=== PATIENT | male | born 1970 | race Caucasian/White ===

== ENCOUNTER 2018-04-07 08:31 | Emergency (ER) | payer MEDICAID ==
[~2018-04-07] VITALS: Ht 172.7 cm; Wt 109.1 kg
[2018-04-07 08:35] VITALS: Ht 172.7 cm; Wt 109.1 kg
[2018-04-07] MEDS ORDERED: KOMBIGLYZE XR1 EACH PO (08:38)
[2018-04-07] MEDS ORDERED: ASPIRIN81 MG PO (08:38)
[2018-04-07] MEDS ORDERED: NITROQUICK0.4 MG SL (08:38)
[2018-04-07] MEDS ORDERED: COREG25 MG PO (08:39)
[2018-04-07 09:02] LABS: BASOPHILS 0.4 % (0-2); EOSINOPHILS 5.9 % (0-7); HEMATOCRIT 38.8 % (42.0-54.0); HEMOGLOBIN 13.5 g/dL (13.5-17.5); LYMPHOCYTES 19.1 % (15-50); MCHC 34.8 g/dL (31.0-37.0); MCV 89.2 fL (80.0-100.0); MONOCYTES 8.1 % (2-11); NEUTROPHILS 65.5 % (40-80); PLATELET COUNT 50 10x3/uL (130-400); RBC 4.35 10x6/uL (4.20-6.10); RDW 12.9 % (11.5-14.5); WBC 11.8 10x3/uL (4.8-10.8)
[2018-04-07 09:22] LABS: ALBUMIN 3.4 g/dL (3.4-5.0); ALKALINE PHOSPHATASE 122 U/L (46-116); ALT (SGPT) 30 U/L (10-68); BILIRUBIN - TOTAL 0.41 mg/dL (0.2-1.3); CALC OSMOLALITY 284 mosm/kg (275-300); CALCIUM 8.6 mg/dL (8.5-10.1); CARBON DIOXIDE 27.1 mmol/L (21.0-32.0); CHLORIDE - SERUM 104 mmol/L (98-107); GLUCOSE 202 mg/dL (74-106); INR 0.93 (0.85-1.17); POTASSIUM - SERUM 4.2 mmol/L (3.5-5.1); PROTEIN - SERUM 7.6 g/dL (6.4-8.2); PROTIME 12.1 SECONDS (11.6-15.0); SODIUM 139 mmol/L (136-145); UREA NITROGEN 16 mg/dL (7-18); eGFR NON AFRICAN AMERICAN 84 mL/min (90-120)
[2018-04-07 09:24] LABS: D-DIMER-QUANTITATIVE 0.56 ug/mLFEU (0.20-0.54)
[2018-04-07 09:46] LABS: CKMB 5.3 U/L (0.0-3.6); CREATINE KINASE 243 UL (21-232); MAGNESIUM - SERUM 2.1 mg/dL (1.8-2.4); TROPONIN-I 0.032 ng/mL (0.000-0.060)
[2018-04-07] MEDS ORDERED: ULTRAM50 MG PO (10:27)
[2018-04-07] MEDS ORDERED: NORVASC10 MG PO (10:27)
[2018-04-07 10:44] VITALS: BP 147/92
== END 2018-04-07 10:45 | disposition home or self-care (01) ==
LOC: D.ER 08:31
PROVIDERS: Emergency Medicine
DX: R07.9 Chest pain, unspecified (principal); E11.9 Type 2 diabetes mellitus without complications; I10 Essential (primary) hypertension

== ENCOUNTER 2018-05-05 20:40 | Emergency (ER) | payer MEDICAID ==
[~2018-05-05] VITALS: Ht 172.7 cm; Wt 127.3 kg
[~2018-05-05 20:40] MED LIST: ASPIRIN81 MG PO; COREG25 MG PO; KOMBIGLYZE XR1 EACH PO; NITROQUICK0.4 MG SL; NORVASC10 MG PO; ULTRAM50 MG PO
[2018-05-05 20:58] VITALS: Ht 172.7 cm; Wt 127.3 kg
[2018-05-05 21:57] LABS: APTT 45.1 SECONDS (22.8-39.4); INR 0.95 (0.85-1.17); PROTIME 12.2 SECONDS (11.6-15.0)
[2018-05-05 22:01] LABS: ALBUMIN 3.3 g/dL (3.4-5.0); ALKALINE PHOSPHATASE 114 U/L (46-116); ALT (SGPT) 32 U/L (10-68); BILIRUBIN - TOTAL 0.34 mg/dL (0.2-1.3); CALC OSMOLALITY 282 mosm/kg (275-300); CALCIUM 8.7 mg/dL (8.5-10.1); CHLORIDE - SERUM 105 mmol/L (98-107); CREATININE - SERUM 0.9 mg/dL (0.6-1.3); GLUCOSE 212 mg/dL (74-106); POTASSIUM - SERUM 3.7 mmol/L (3.5-5.1); PROTEIN - SERUM 7.3 g/dL (6.4-8.2); SODIUM 137 mmol/L (136-145); UREA NITROGEN 20 mg/dL (7-18); eGFR NON AFRICAN AMERICAN > 90 mL/min (90-120)
[2018-05-05 22:27] LABS: CKMB 9.5 U/L (0.0-3.6); CREATINE KINASE 471 UL (21-232); MAGNESIUM - SERUM 2.1 mg/dL (1.8-2.4); TROPONIN-I 0.025 ng/mL (0.000-0.060)
[2018-05-05 22:38] LABS: BASOPHILS 0.6 % (0-2); EOSINOPHILS 7.9 % (0-7); HEMATOCRIT 38.4 % (42.0-54.0); HEMOGLOBIN 13.2 g/dL (13.5-17.5); IMMATURE GRANULOCYTES 0.6 % (0-5); LYMPHOCYTES 24.9 % (15-50); MCH 30.4 pg (26.0-34.0); MCHC 34.4 g/dL (31.0-37.0); MCV 88.5 fL (80.0-100.0); MEAN PLATELET VOLUME 11.5 fL (7.4-10.4); MONOCYTES 7.5 % (2-11); NEUTROPHILS 58.5 % (40-80); RBC 4.34 10x6/uL (4.20-6.10)
[2018-05-05 22:46] LABS: PLATELET COUNT 127 10x3/uL (130-400)
[2018-05-05] MEDS ORDERED: CATAPRES0.2 MG PO (22:55)
[2018-05-05 23:25] VITALS: BP 176/105
== END 2018-05-05 23:25 | disposition home or self-care (01) ==
LOC: D.ER 20:40
PROVIDERS: Family Medicine
DX: R07.9 Chest pain, unspecified (principal); E11.9 Type 2 diabetes mellitus without complications; I10 Essential (primary) hypertension; F17.200 Nicotine dependence, unspecified, uncomplicated